=== PATIENT | female | born 1995 | race Caucasian/White ===

== ENCOUNTER 2023-12-15 08:36 | Emergency (ER) | payer SELFPAY ==
[2023-12-15] MEDS ORDERED: diphenhydrAMINE 50 MG/ML VIAL ONE (09:06)
[2023-12-15] MEDS ORDERED: Pantoprazole 40 MG VIAL ONE (09:08)
[2023-12-15] MEDS ORDERED: Haloperidol Lactate 5 MG/ML VIAL ONE (09:08)
[2023-12-15 09:33] LABS: BHCG - Serum Negative (NEGATIVE); Pregs Control Background? CLEAR/WHITE (CLR/WHITE); Pregs Control Bar Appear? YES (CONTROL BAR)
[2023-12-15 09:58] LABS: #Basophils 0.07 10x3/uL (0.0-0.2); #Eosinphils 0.01 10x3/uL (0.0-0.5); #Monocytes 0.68 10x3/uL (0.0-1.1); #Neutrophils 11.57 10x3/uL (1.5-8.4); %Basophils 0.5 % (0.0-2.0); %Eosinophils 0.1 % (0.0-6.0); %Lymphocytes 13.9 % (18.0-47.0); %Monocytes 4.7 % (0.0-10.0); %Neutrophils 80.3 % (40.0-75.0); Hematocrit 41.7 % (34.9-44.5); Hemoglobin 14.7 g/dL (12.0-15.5); Mean Corpuscular HGB CONC 35.3 g/dL (32.0-36.0); Mean Corpuscular Volume 93.7 fL (81.6-98.3); Platelet Count 288 10x3/uL (150-450); RBC Distribution Width 11.9 % (11.5-14.5); Red Blood Cell (RBC) Count 4.45 10x6/uL (3.90-5.03); White Blood Cell (WBC) Count 14.4 10x3/uL (3.5-10.5)
[2023-12-15 10:34] LABS: Lactic Acid 3.7 mmol/L (0.5-2.2)
[2023-12-15 10:36] LABS: ALT (SGPT) 13 U/L (8-55); AST (SGOT) 19 U/L (5-34); Albumin 4.3 g/dL (3.5-5.0); Alkaline Phosphatase 46 U/L (40-110); Anion Gap 18 mmol/L (10-20); BUN (Urea Nitrogen) 10 mg/dL (7.0-18.7); Bilirubin, Total 0.5 mg/dL (0.2-1.2); Calc. Creatinine Clearance 0 mL/min (70-130); Calcium 9.5 mg/dL (7.8-10.44); Carbon Dioxide 15 mmol/L (22-29); Chloride 107 mmol/L (98-107); Estimated GFR 100; Globulin 2.9 g/dL (2.4-3.5); Glucose 189 mg/dL (70-105); Lipase 23 U/L (8-78); Potassium 3.3 mmol/L (3.5-5.1); Protein, Total 7.2 g/dL (6.0-8.3); Sodium 137 mmol/L (136-145)
[2023-12-15 11:26] LABS: Pregnancy Test - Urine (BHCG) Negative (Negative); Pregu Control Background? CLEAR/WHITE (CLR/WHITE); Pregu Control Bar Appear? YES (CONTROL BAR)
[2023-12-15] MEDS ORDERED: Potassium Chloride 20 MEQ TAB ONE (11:50)
[2023-12-15] MEDS ORDERED: Potassium Chloride 20 MEQ (100 mL) BAG ONE (11:51)
[2023-12-15 11:59] LABS: Amphetamine Not Detected (NotDetected); Barbiturates Screen Not Detected (NotDetected); Benzodiazepine Screen Not Detected (NotDetected); Cocaine Metabolite Screen Not Detected (NotDetected); Methadone Not Detected (NotDetected); Methamphetamine Not Detected (NotDetected); Opiate Screen Not Detected (NotDetected); Oxycodone Screen Not Detected (NotDetected); Phencyclidine (PCP) Not Detected (NotDetected); THC/Cannabinoid Screen Detected (NotDetected); Tricyclic Screen Not Detected (NotDetected)
[2023-12-15 12:05] LABS: Clarity Clear (Clear)
[2023-12-15 12:06] LABS: Bilirubin Negative (Negative); Blood, Urine Negative (Negative); Glucose, Urine (Dipstick) 100 mg/dL (Negative); Ketone, Urine 50 mg/dL (Negative); Leukocyte Negative (Negative); Nitrite Negative (Negative); Protein, Urine (Dipstick) Negative (Neg-Trace); Urobilinogen Normal mg/dL (Less than 2)
[2023-12-15 12:37] LABS: Bacteria/HPF 1+ HPF (None Seen); RBC/HPF None Seen HPF (0-3); Squamous Epithelial 0-3 HPF (0-3); WBC/HPF 0-3 HPF (0-3)
[2023-12-15] MEDS ORDERED: Ondansetron PF 4 MG/2 ML Vial ONE (12:42)
[2023-12-15] MEDS ORDERED: HYDROmorphone 0.5 MG/0.5 ML SYRINGE ONE (12:42)
[2023-12-15] MEDS ORDERED: cefTRIAXone (ROCEPHIN) 1 GM VIAL ONE (12:43)
[2023-12-15] MEDS ORDERED: Iopamidol 300 61% 100 ML VIAL FS ONE (13:10)
== END 2023-12-15 15:07 | disposition home or self-care (01) ==
LOC: CSHERS 08:36
DX: N39.0 Urinary tract infection, site not specified (principal); E86.0 Dehydration; R11.2 Nausea with vomiting, unspecified
CPT/HCPCS: 74177; 80053; 80306; 81001; 81025; 83605; 83690; 84703; 85025; 96374; 96375; C9113; J0696; J1170; J1200; J1630; J2405; J3480; Q9967

== ENCOUNTER 2023-12-17 07:29 | Emergency (ER) | payer SELFPAY ==
[2023-12-17] MEDS ORDERED: Haloperidol Lactate 5 MG/ML VIAL ONE (07:58)
[2023-12-17] MEDS ORDERED: diphenhydrAMINE 50 MG/ML VIAL ONE (07:58)
[2023-12-17 08:08] LABS: #Basophils 0.08 10x3/uL (0.0-0.2); #Eosinphils 0.01 10x3/uL (0.0-0.5); #Monocytes 0.58 10x3/uL (0.0-1.1); %Basophils 0.8 % (0.0-2.0); %Eosinophils 0.1 % (0.0-6.0); %Lymphocytes 35.2 % (18.0-47.0); %Monocytes 6.2 % (0.0-10.0); %Neutrophils 57.4 % (40.0-75.0); Hematocrit 41.5 % (34.9-44.5); Hemoglobin 14.8 g/dL (12.0-15.5); Mean Corpuscular HGB CONC 35.7 g/dL (32.0-36.0); Mean Corpuscular Hemoglobin 33.5 pg (27.0-33.0); Mean Corpuscular Volume 93.9 fL (81.6-98.3); Mean Platelet Volume 8.7 fL (7.4-10.4); Platelet Count 262 10x3/uL (150-450); RBC Distribution Width 12.3 % (11.5-14.5); Red Blood Cell (RBC) Count 4.42 10x6/uL (3.90-5.03); White Blood Cell (WBC) Count 9.4 10x3/uL (3.5-10.5)
[2023-12-17 08:30] LABS: ALT (SGPT) 17 U/L (8-55); AST (SGOT) 17 U/L (5-34); Albumin 4.4 g/dL (3.5-5.0); Alkaline Phosphatase 46 U/L (40-110); Anion Gap 19 mmol/L (10-20); BUN (Urea Nitrogen) 7 mg/dL (7.0-18.7); Bilirubin, Total 0.8 mg/dL (0.2-1.2); Calc. Creatinine Clearance 0 mL/min (70-130); Calcium 9.4 mg/dL (7.8-10.44); Carbon Dioxide 17 mmol/L (22-29); Chloride 107 mmol/L (98-107); Estimated GFR 76; Glucose 138 mg/dL (70-105); Lipase 19 U/L (8-78); Potassium 3.2 mmol/L (3.5-5.1); Protein, Total 7.4 g/dL (6.0-8.3); Sodium 140 mmol/L (136-145)
[2023-12-17] MEDS ORDERED: Metoclopramide HCl 10 MG (2 mL) VIAL ONE (08:50)
[2023-12-17] MEDS ORDERED: Ketorolac Tromethamine 30 MG (1 mL) VIAL ONE (08:51)
[2023-12-17] MEDS ORDERED: Potassium Chloride 20 MEQ TAB ONE (09:26)
[2023-12-17] MEDS ORDERED: Morphine 4 MG/ML VIAL ONE (09:59)
[2023-12-17] MEDS ORDERED: KETAMINE 100 MG/ML (5ML VIAL) ONE (10:41)
[2023-12-17 11:55] LABS: Bilirubin Neg (Negative); Blood, Urine Negative (Negative); Clarity Clear (Clear); Glucose, Urine (Dipstick) 50 mg/dL (Negative); Ketone, Urine 50 mg/dL (Negative); Leukocyte Negative (Negative); Nitrite Negative (Negative); Protein, Urine (Dipstick) Negative (Neg-Trace); Urobilinogen Normal mg/dL (Less than 2)
[2023-12-17 12:13] LABS: Bacteria/HPF Rare-Few HPF (None Seen); CAUTI Indications for Culture Pelvic or flank pain; RBC/HPF None Seen HPF (0-3); Squamous Epithelial 0-3 HPF (0-3); Urine Culture Reflex No No; WBC/HPF 0-3 HPF (0-3)
== END 2023-12-17 13:50 | disposition home or self-care (01) ==
LOC: CSHERS 07:29
DX: R11.2 Nausea with vomiting, unspecified (principal); R10.9 Unspecified abdominal pain; E86.0 Dehydration
CPT/HCPCS: 80053; 81001; 83690; 83735; 85025; 96361; 96374; 96375; J1200; J1630; J1885; J2270; J2765